=== PATIENT | male | born 1985 | race Caucasian/White ===

== ENCOUNTER 2016-09-08 11:23 | Emergency (ER) | payer OTHER, MEDICAID ==
[~2016-09-08] VITALS: Ht 180.3 cm; Wt 104.5 kg
[~2016-09-08 11:23] MED LIST: HYDR10TA16 PO; LOMO PO; LORT5TAB PO; METR250 PO; PREV30CA36 PO; PRIL20CA PO; PROM25SU8 PO
[2016-09-08 11:24] VITALS: BP 135/82; PULSE 92; RESP 20; TEMP 98.1; O2SAT 97
--- NOTE | 2016-09-08 12:48 | PD ---
HPI Chief Complaint: Skin Problem Time Seen by Provider: 12:47 Travel History International Travel<30 days: No Contact w/Intl Traveler<30days: No Traveled to known affect area: No History of Present Illness HPI 31-year-old male presents to the emergency Department with complaint of pain and swelling to the bottom medial aspect of his right foot 2 weeks. Denies known injury. 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 It did go away during this two-week period and then yesterday he was playing with his children and noticed that had come back. He says it's more swollen than it was 2 weeks ago when he first noticed it. He denies paresthesias, loss of sensation, decreased range of motion, decreased drinks the affected extremity. Pain is aggravated with palpation and walking. He took ibuprofen yesterday with some good relief of pain and he said the swelling went down a little bit. Otherwise has not tried any other treatments or medications to alleviate his symptoms. He denies fever, chills, nausea, vomiting. Denies significant past medical history. No known allergies. Does not have primary care at this time. No other modifying factors or associated signs and symptoms. PFSH Past Medical History Gastrointestinal Disorders: Yes (CHRONIC STOMACH PAIN INTERM.) Social History Alcohol Use: Yes (OCCAS. BEER ) Tobacco Use: Yes (1 - 08 03/2 PPD) Substance Use: No Allergies-Medications (Allergen,Severity, Reaction): Coded Allergies: No Known Allergies (Verified , 09/08/16) Reported Meds & Prescriptions Reported Meds & Active Scripts Active Keflex (Cephalexin) 500 Mg Cap 500 Mg PO Q8H 10 Days Ibuprofen 800 Mg Tab 800 Mg PO Q6HR PRN Lortab 5/500 (Acetaminophen/Hydrocodone Bitart) 5 Mg/500 Mg Tab 1 Tab PO QIDPRN Flagyl (Metronidazole) 250 Mg Tab 250 Mg PO QID Promethazine Hcl (Promethazine HCl) 25 Mg Tab 12.5 Mg PO Q6HPRN FOR NAUSEA OR VOMITING Lomotil (Diphenoxylate HCl/Atropine) 1 Tab Tab 2.5 Mg PO PRN Reported Lortab 10/500 (Acetaminophen/Hydrocodone Bitart) 10 Mg/500 Mg Tab 1 Tab PO Q4HPRN FOR PAIN Prevacid (Lansoprazole) 30 Mg Capcr 30 Mg PO DAILY Prilosec 20 mg (Omeprazole) 20 Mg Capcr 20 Mg PO DAILY Review of Systems Except as stated in HPI: all other systems reviewed are Neg Physical Exam Narrative GENERAL: Well-nourished, well-developed male patient, in no acute distress SKIN: Warm and dry. Bottom, medial, arch aspect of right foot with area that is edematous and tender to palpation; the area is without erythema or warmth to touch. Right lower extremity is supple and non-tense with 2+ pedal pulse and sensory intact; with full range of motion and strength. HEAD: Atraumatic. Normocephalic. EYES: Pupils equal and round. No scleral icterus. No injection or drainage. ENT: Mucosa pink and moist. Airway patent. NECK: Trachea midline. CARDIOVASCULAR: Regular rate. RESPIRATORY: No accessory muscle use. GASTROINTESTINAL: Rounded. MUSCULOSKELETAL: No obvious deformities. No clubbing. No cyanosis. No edema. NEUROLOGICAL: Awake and alert. Oriented 3. No obvious cranial nerve deficits. Motor grossly within normal limits. Normal speech. PSYCHIATRIC: Appropriate mood and affect; insight and judgment normal. Data Data Last Documented VS Vital Signs Date Time Temp Pulse Resp B/P Pulse Ox O2 Delivery O2 Flow Rate FiO2 09/08/16 11:24 98.1 92 20 135/82 97 Room Air Orders Foot, Complete ([id number]) (09/08/16 12:48) Ibuprofen (Motrin) (09/08/16 13:00) Tetanus/Diphtheria Tox Adult (Tetanus/Di (09/08/16 13:00) Crutches (09/08/16 14:23) MDM Medical Decision Making Medical Screen Exam Complete: Yes Emergency Medical Condition: Yes Medical Record Reviewed: Yes Differential Diagnosis Tendon strain, nonspecific swelling of foot, less likely cellulitis Narrative Course 31-year-old male with an area to the bottom of his right foot to the medial arch aspect which is edematous and non-erythematous. The areas with tenderness on palpation. Right lower proximal with a supple nontender 2+ pedal pulse and sensory intact and with full range of motion and strength. Patient is afebrile and nontoxic-appearing. He denies fever, chills, nausea, vomiting. Ibuprofen administered in the ER. Right foot x-ray ordered to rule out osteomyelitis. 1419: Right foot x-ray concludes no acute findings or soft tissue swelling. Crutches provided for support. Instructed patient to follow up with podiatry as needed. Patient is requesting antibiotics because he is concerned that the area may be an infection. Keflex prescribed for home. Patient is medically cleared and stable for discharge. Discussed reasons to return to the emergency department. Instructed patient to follow up with primary care provider. Patient agrees with treatment plan. The patients vital signs are stable and the patient is stable for outpatient follow-up and treatment. Patient discharged home, stable and in no acute distress. Diagnosis Primary Impression: Edema of right foot Referrals: Security Consultant Primary Care Physician Patient Instructions: General Instructions Departure Forms: Tests/Procedures, Work Release Enter return to work date: Sep 10, 2016 Additional Instructions: Ibuprofen or Tylenol as directed nausea for pain and inflammation Rest, ice, compress, and elevate extremity to decrease pain and inflammation Crutches for support Avoid aggravating activity; increase activity as tolerated Follow-up with primary care provider Return to the emergency department immediately with worsening symptoms Med/Other Pt SpecificInfo: Prescription(s) given Scripts Cephalexin (Keflex)500 Mg [id number] Mg PO Q8H 10 Days Ref 0 Prov:Soniya Huizar 09/08/16 Ibuprofen 800 Mg [id number] Mg PO Q6HR PRN (PAIN) #30 TAB Ref 0 Prov:Soniya Huizar 09/08/16 Disposition: 01 DISCHARGE HOME Condition: Stable Soniya Huizar Sep 08, 2016 12:47
[2016-09-08] MEDS ORDERED: IBUPROFEN 800 MG TAB PO ONE (13:00)
[2016-09-08] MEDS ORDERED: TETANUS/DIPHTHERIA TOXOID ADULT 0.5 ML VIAL IM ONE (13:00)
--- NOTE | 2016-09-08 14:03 | RADRPT ---
EXAM DATE/TIME: 09/08/2016 13:20 [facility] COMPARISON: No previous studies available for comparison. INDICATIONS : Right heel and sole pain with swelling. MEDICAL HISTORY : None. SURGICAL HISTORY : None. ENCOUNTER: Initial ACUITY: 2 weeks PAIN SCORE: 6/10 LOCATION: Right foot, heel/sole FINDINGS: Three view examination of the right foot demonstrates no soft tissue swelling, dislocation, or fractu re. The tarsal bones appear intact. The interphalangeal and metatarsophalangeal joints are intact. The calcaneus is intact. Bony mineralization is normal. CONCLUSION: Normal examination for a patient of this age. Po Layton MD FACR on September 08, 2016 at 14:01 Board Certified Radiologist. This report was verified electronically.
[2016-09-08] MEDS ORDERED: IBUP800T23 PO (14:22)
[2016-09-08] MEDS ORDERED: CEPH-460 PO (14:23)
== END 2016-09-08 14:33 | disposition home or self-care (01) ==
LOC: NEPB 11:23
DX: R60.9 Edema, unspecified (principal); F17.210 Nicotine dependence, cigarettes, uncomplicated; Z23 Encounter for immunization
CPT/HCPCS: 73630; 90471; 90714; 99283; E0113